=== PATIENT | male | born 1950 | race Hispanic/Latino ===

== ENCOUNTER 2017-01-30 09:42 | Outpatient (CLI) | payer OTHER ==
[2017-01-30] MEDS ORDERED: NACL ONE (10:03)
--- NOTE | 2017-02-02 09:25 | Cat Scan Report ---
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 TECHNIQUE: Helical CT imaging with 1.25mm reconstructions following IV contrast. Sagittal and Coronal 2D reformatted images. 3 dimensional volume rendering technique. Stenosis was measured using NASCET criteria. COMPARISON: None at this facility. FINDINGS: ABDOMINAL AORTA: Mild diffuse partially calcified plaques are identified throughout the abdominal aorta. There is less than 20% stenosis. No aneurysm or dissection. The celiac axis, SMA, TETO and duel bilateral renal arteries are patent with less than 20% stenosis. ILIAC ARTERIES: Moderate partially calcified plaques are identified in both common iliac arteries with stenosis measuring less than 30%. There are also moderate partially calcified plaques in the external iliac arteries bilaterally with less than 30% stenosis. Moderate partially calcified plaques are identified in both internal iliac arteries with approximately 50% stenosis at the origin of these vessels. There is also minimal fusiform dilatation of the mid to distal right internal iliac artery which measures up to 1 cm in diameter. RIGHT LOWER EXTREMITY: Moderate partially calcified plaques are identified throughout the right superficial femoral artery with a focal area of moderate to high grade narrowing in the mid to distal right superficial femoral artery on image 512, series 2. Mild fusiform dilatation of the right popliteal artery measures 1.2 cm. No popliteal stenosis. The arterial structures distal to the knee appear widely patent to the ankle. LEFT LOWER EXTREMITY: Moderate partially calcified plaques are identified in the left superficial femoral artery with multiple focal areas of stenosis measuring up to 70-80% in the mid to distal left superficial femoral artery. The left popliteal artery and arterial structures distal to the knee are patent with no significant stenosis. Impression: Moderate diffuse atherosclerotic disease. 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 No evidence for mural thrombus or rupture. Focal areas of moderate to high grade stenosis in the mid to distal superficial femoral arteries bilaterally. See above.
== END 2017-01-30 09:43 | disposition home or self-care (01) ==
LOC: CT 09:42
PROVIDERS: ATTEND Surgery Vascular Surgery
DX: I72.4 Aneurysm of artery of lower extremity (principal)
CPT/HCPCS: 75635; Q9967